=== PATIENT | male | born 1985 ===

== ENCOUNTER 2021-12-10 20:42 | Emergency (ER) | payer SELFPAY ==
[~2021-12-10] VITALS: Ht 182.9 cm; Wt 69.0 kg
[2021-12-10] MEDS ORDERED: HYDROCODONE/ACETAMINOPHEN 10/325MG TABLET PO ONE (22:45)
[2021-12-10] MEDS ORDERED: AMOXICILLIN/POTASSIUM CLAVULANATE 875/125MG TAB PO ONE (22:45)
[2021-12-10] MEDS ORDERED: KETOROLAC 15MG/ML VIAL IM ONE (22:45)
[2021-12-10] MEDS ORDERED: NAPR500T7 MT (23:29)
[2021-12-10] MEDS ORDERED: AMOX1TAB16 MT (23:29)
[2021-12-10 23:56] VITALS: BP 150/90
== END 2021-12-11 | disposition home or self-care (01) ==
LOC: ER 20:42
DX: K08.89 Other specified disorders of teeth and supporting structures (principal)
CPT/HCPCS: 96372; 99283; J1885